=== PATIENT | female | born 1945 | race Caucasian/White ===

== ENCOUNTER 2016-07-12 16:48 | Inpatient (IN) | payer MEDICARE, OTHER ==
[~2016-07-12] VITALS: Ht 162.6 cm; Wt 74.0 kg
[2016-07-12] VITALS (7 sets, daily range): BP systolic 101–134; BP diastolic 43–82; PULSE 77–137; RESP 12–16; O2SAT 98–100
--- NOTE | 2016-07-12 17:29 | ED.REPORT ---
HPI-NVD Date of Service Jul 12, 2016 ED Provider: Merline Calderon MD The patient is a 71 year old female with history of hypertension and borderline high cholesterol who presents to the emergency department by EMS for vomiting that began at about 1600 today. She states her emesis looked like "coffee- grounds" and was bloody. She has not had another episode since. She had an endoscopy with biopsy at [facility] yesterday. She felt fine after the procedure and went home. This morning she woke up in a cold sweat and noticed some nausea, generalized weakness, and tarry stools. She went to [facility] and was told she might have the flu and was sent home. Around 1600 today she felt much worse and began vomiting. She does not take any blood thinners. She has not had similar symptoms in the past. Nursing Notes Stated Complaint: GI BLEED Chief Complaint: Female Abdominal Pain Nursing Notes Reviewed: Yes Allergies: Coded Allergies: codeine (Verified Allergy, Unknown, 07/12/16) nifedipine (Verified Allergy, Unknown, 07/12/16) Uncoded Allergies: INFERON (Allergy, Unknown, 07/12/16) Scheduled Aspirin Chew (Aspirin Chew) 81 Mg Chew 81 MG PO HS Estradiol (Estring) 1 Each Vag.ring 1 EACH VG change every 3 month Hydrochlorothiazide (Hydrochlorothiazide) 25 Mg Tablet 25 MG PO MORNING Lisinopril (Lisinopril) 20 Mg Tablet 20 MG PO MORNING Omeprazole Magnesium (Prilosec Otc) 20 Mg Tablet.dr 20 MG PO HS Triamcinolone Acetonide (Nasacort) 10.8 Ml [place] 10.8 ML NS HS General Time Seen by MD: 17:27 Chief Complaint Vomiting Hx Obtained From: Patient, EMS Arrived By: Ambulance Onset Occurred: 5 - 8 hours ago Symptom Duration: Since onset Vomiting: Vomiting blood, Vomiting coffee grounds Recent Healthcare: Recent doctor visit, Previous surgery (endoscopy) Similar Sx Previous: No Past Medical History Past Medical History Hypertension High cholesterol Past Surgical History Endoscopy with biopsy Family History Noncontributory Smoking History Unknown if Ever Smoker Social History Other Social History: Good social support, , Local resident Ambulatory Status Independent Review of Systems Constitutional: Reports: Chills GI: Reports: Bloody/tarry stool, Hematemesis, Nausea, Vomiting Skin: Reports Diaphoresis Complete sys rev & neg: except as marked. Physical Exam Initial Vital Signs Vital Signs (First) Date Time Temp Pulse Resp B/P Pulse Ox O2 Delivery O2 Flow Rate FiO2 07/12/16 17:04 37.1 82 15 134/62 99 Room Air Initial VS: Reviewed ENT: Mucous membranes moist, Conjunctiva normal, No scleral icterus Neck: Supple, Non-tender, Full range of motion Respiratory: Breath sounds normal, Clear to auscultation, No respiratory distress Cardiovascular: Regular rate & rhythm, Heart sounds normal, Intact distal pulses Lymphatic: No lymphadenopathy Extremities: Vascular intact, Neuro intact, No swelling, No tenderness Skin: Warm, Dry, No cyanosis Neurologic: Alert, Oriented, Nonfocal Psychiatric: Mood/affect normal, Behavior normal, Normal thought content General/Constitutional: Awake, Alert, Well appearing Abdomen: Atraumatic, Soft, Non-tender, McBurney's non-tender, No guarding, No rebound, BS normoactive, No distention, No hernia, No palpable mass Head / Eyes: Normocephalic, PERRL, EOMI, Conjunctiva NL Conjunctiva / Sclera: Negative: Pallor Rectal for Blood: Positive: Blood - occult heme +, Melena present Interpretation & Diagnostics Lab Results Interpretation Result Diagram: 07/12/16 2152 07/12/16 1731 Test 07/12/16 17:17 07/12/16 17:31 Hold Purple Top Tube Received (Received) Hold Blue Top Tube Received (Received) Hold Red Top Tube Received (Received) Hold [place] Top Tube Received (Received) White Blood Count 7.7th/mm3 (3.8-10.1) Red Blood Count 3.60mil/mm3 (3.90-5.20) Mean Corpuscular Volume 90.8fL (81-100) Mean Corpuscular Hemoglobin 30.3pg (27.0-35.0) Mean Corpuscular Hemoglobin Concent 33.3% (32.0-37.0) Red Cell Distribution Width 12.7% (12.3-15.4) Platelet Count 228bil/L (150-400) Neutrophils (%) (Auto) 61.7% (40-74) Lymphocytes (%) (Auto) 31.8% (14-46) Monocytes (%) (Auto) 5.7% (4-12) Eosinophils (%) (Auto) 0.4% (0-5) Basophils (%) (Auto) 0.3% (0-3) Prothrombin Time 10.9sec (8.1-12.5) Prothromb Time International Ratio 1.02ratio Sodium Level 141mEq/L (134-144) Potassium Level 4.1mEq/L (3.5-5.2) Chloride Level 105mEq/L (97-108) Carbon Dioxide Level 24mmol/L (18-29) Blood Urea Nitrogen 45mg/dL (8-27) Creatinine 0.54mg/dL (0.57-1.00) Estimat Glomerular Filtration Rate 160mL/min (>59) Glucose Level 152mg/dL (60-99) Calcium Level 8.7mg/dL (8.5-10.1) Total Bilirubin 0.4mg/dL (0.0-1.2) Aspartate Amino Transf (AST/SGOT) 15U/L (0-50) Alanine Aminotransferase (ALT/SGPT) 23U/L (0-32) Alkaline Phosphatase 54U/L (25-165) Total Protein 5.8g/dL (6.4-8.4) Albumin 3.8g/dL (3.4-5.0) Re-Eval/Medical Decision Med Decision/Clinical Course 71-year-old female with extensive past medical history with EGD yesterday here with hematemesis and black stool today along with fatigue. Differential diagnosis includes it is not limited to upper versus lower GI bleed versus bleeding biopsy sites versus anemia. Labs are remarkable for hemoglobin of 11. I do not have baseline labs on the patient. She did become rapidly tachycardic at 1:30 during orthostatic vital signs. Given that she had heme positive black stool, and was orthostatic, I have admitted her to the hospitalist. I also discussed the case with GI on-call doctor Shamir who will see the patient in the morning unless she becomes unstable. Patient is aware and amenable to plan at this time. Source of Hx: Old records, EMS, Family Re-Evaluation/Progress : Time of Eval: 18:27 Re-Evaluation/Progress Note: Discussed plan for admission. All questions were addressed. Consultation #1: Referral / Consult Name: Cirilo Childers MD Call Returned at: 18:21 Note: Spoke with the on-call physician assistant psychiatry. Recommended PPI drip and transfuse as needed by hospitalist. He agrees to consult. Consultation #2: Referral / Consult Name: Margarito Botello Consulted With: Hospitalist Requested Call at: 18:22 Call Returned at: 18:37 Cardiologist: Will see patient, Agrees with eval, Agrees with plan, Accepts admit Counseled Regarding: Diagnosis, Lab results, Need for admission Discharge & Departure Impression: Primary Impression: Upper GI bleed Disposition: ADMITTED TO HOSPITAL Discharge Condition All VS Reviewed: Yes Condition: Stable Referrals: NOPCP (PCP) Carmelo Attestation Portions of this note were transcribed by Batool Obando. I, Dr. Calderon personally performed the history, physical exam and medical decision-making; I reviewed and confirmed the accuracy of the information in the transcribed note. Signed by : Carmelo Chang, 07/12/2016 and 1840. Merline Calderon MD Jul 12, 2016 17:29 Batool Obando Jul 12, 2016 17:48
[2016-07-12 17:35] LABS: BASOPHILS % (AUTO) 0.3 % (0-3); EOSINOPHILS % (AUTO) 0.4 % (0-5); MONOCYTES % (AUTO) 5.7 % (4-12); Mean Corpuscular Hemoglobin 30.3 pg (27.0-35.0); Mean Corpuscular Volume 90.8 fL (81-100); NEUTROPHILS % (AUTO) 61.7 % (40-74); Platelet Count 228 bil/L (150-400)
[2016-07-12 17:39] LABS: INR 1.02 ratio
[2016-07-12] MEDS ORDERED: Ondansetron 2 mg/mL 2 mL Inj IVPUSH ONE (17:55)
[2016-07-12] MEDS ORDERED: Pantoprazole 4 mg/mL 10 mL Inj IVPUSH ONE ×2 (18:00→20:25)
[2016-07-12] MEDS ORDERED: Ondansetron 2 mg/mL 2 mL Inj IVPUSH PRN ×2 (18:40→19:55)
[2016-07-12] MEDS ORDERED: Alum-Mag Hydrox-Simeth 30 mL Suspension PO PRN (19:55)
[2016-07-12] MEDS ORDERED: Pantoprazole Inj 40 MG in 0.9% Sodium Chloride 100 ML IV ONE (19:55)
[2016-07-12] MEDS ORDERED: Polyethylene Glycol (PEG) 17 Gm Powder PO PRN (19:55)
[2016-07-12] MEDS ORDERED: HYDR25TA4 PO (20:05)
[2016-07-12] MEDS ORDERED: LISI-567 PO (20:05)
[2016-07-12] MEDS ORDERED: ESTR1VAG VG (20:05)
[2016-07-12] MEDS ORDERED: ASPI81TA3 PO (20:05)
[2016-07-12] MEDS ORDERED: TRIA10.8 NS (20:05)
[2016-07-12] MEDS ORDERED: OMEP20TA24 PO (20:05)
--- NOTE | 2016-07-12 20:07 | NUR ---
Admit Arrive from ER A/O accompanied by . c/o feeling weak and woozy when up. Denies pain, nausea, dyspnea. Tele placed. VSS except low grade temperature.
[2016-07-12] MEDS ORDERED: 0.9% Sodium Chloride 1,000 ML IV ONE (20:15)
[2016-07-12] MEDS: 0.9% Sodium Chloride 1,000 ML IV SCH (20:28)
[2016-07-12] MEDS: Pantoprazole Inj 80 MG in 0.9% Sodium Chloride 80 ML IV SCH (21:16)
--- NOTE | 2016-07-12 21:31 | PCM.HPMED ---
Subjective Date of Service Jul 12, 2016 Primary Provider: Admitting Physician: Jeanne Jeter DO Primary Care Physician: Other,Physician Attending Physician: Jeanne Jeter DO Admit Status: From the Emergency Department Chief Complaint: Hematemesis History of Present Illness: [employer] annual female with history of hypertension and hyperlipidemia, with ongoing evaluation for 6 months course voice following a viral infection presents to the ED due to ongoing melena and new substantial hematemesis. Patient underwent EGD and [facility] on 07/11/2016 with biopsy of the gastroesophageal junction as this was noted to be irregular. Following the biopsy the patient was sent to GI motility and had a pH impedance monitoring probe inserted. This morning the patient awoke with a cold sweat, nausea, and melena with associated dizziness, lightheadedness, and general malaise. Patient return to [facility] this morning to have the probe removed at which time it was noted that the probe had streaks of blood on it, and was told that this is not unusual. Patient returned home and around 1600 today had a large emesis described as coffee-ground with copious amounts of blood. Patient is currently not on blood thinners, NSAIDs, or has ever suffered from a GI bleed before. However her father did have an IN second to severe GI bleed. Patient denies fever, chills, changes in vision, or sensation loss. Review of Systems: Complete review of systems performed; pertinent positives and negatives per history of present illness all other systems reviewed and are negative Allergies Coded Allergies: codeine (Verified Allergy, Unknown, 07/12/16) nifedipine (Verified Allergy, Unknown, 07/12/16) Uncoded Allergies: INFERON (Allergy, Unknown, 07/12/16) Home Medications ASA 81 mg daily Lisinopril 20mg daily HCTZ 25mg daily Estring PMH Hypertension High cholesterol Surgical History Endoscopy with biopsy Family History Father had CABG, HTN Mother has HTN Social History Hx Alcohol Use: Yes Alcoholic Drinks Per Day: COUPLE GLASSES WINE PER WEEK Hx Substance Use: No Hx Tobacco Use: No Smoking Status: Never Smoker Living Arrangement: with Family Exam Vital Signs Vital Sign - Last Date Time Temp Pulse Resp B/P Pulse Ox O2 Delivery O2 Flow Rate FiO2 07/12/16 19:19 37.4 77 16 116/82 100 Nasal Cannula 2.00 Exam GEN: No acute distress, conversive, well-developed HENT: Mucous membranes dry, no blood in pharynx, neck supple, some blood noticed in the nares bilaterally; no nodules on thyroid Eyes: PERRLA, EOMI Lymph: No lymphadenopathy Cardiac: regular rhythm, tachycardic my: No murmurs rubs or gallops Respiratory: CTA bilaterally, no wheezes, crackles, rhonchi Abdominal: Positive bowel sounds, nontender, nondistended, no hepatomegaly Extremity: No edema in the lower extremities, 5 out of 5 strength throughout, sensation intact throughout Neuro: Cranial nerves 2 through 12 intact; sensation intact throughout, 1 psych : Patient appropriate mood and affect Skin: No excessive bruising or rashes Musculoskeletal: No tenderness on palpation the chest or extremities Lab and Diagnostics Result Diagram: 07/12/16173007/12/161730 Assessment & Plan 71-year-old female with recent upper endoscopy with biopsy with new hematemesis. #1 upper GI bleed with acute anemia; present admission; ongoing -Patient was recently seen [facility] and underwent EGD with biopsy of antrum; complaints of hemoptysis and now hematemesis following procedure -Presentation the patient's H&H is currently stable with hemoglobin 10.9, hematocrit 32.7; BUN is also elevated likely from digestion of blood; PT/INR normal -In the ED the patient was given 40 mg IV Protonix -On-call GI was consulted from the ED and will see patient in the a.m. -Patient given an additional 40 mg IV Protonix with initiation of Protonix gtt. -We will check H&H every 4 through the night and into tomorrow -We will order cross match and hold in case patient needs transfusion tonight -Patient also bolused 2L normal saline and will continue on 80 mL/hour -If patient abdominal status changes we will send for CT #2 Hyperglycemia; present on admission; ongoing -No known history of diabetes; patient presents with glucose 152 -We will check an A1c -Start patient on low-dose insulin protocol #3 Chronic Hypertension; present on admission; stable -Patient is on the Lisinopril and hydrochlorothiazide at home -Patient presents with blood pressure 116/82 -We will hold home medications until proven hemodynamically stable #4 Hypercholesterolemia; present on admission; stable -Patient was previously on statin but had unwanted side effects of decreased mentation medication was stopped -We will not start medication Disposition: patient is being admitted to inpatient PCC with acute GI bleed with expected Navas greater than 2 minutes due to severity of presenting symptoms, duration treatment, and risks of adverse events Pain Evaluation: Adequate Pain Control GI Prophylaxis: Proton Pump Inhibitor VTE Prophylaxis Indicated: Contraindicated VTE Mechanical Devices: Intermittant Pneumatic CD Resuscitation Status: CPR: Attempt Resuscitation Attending Statement The patient was seen and examined together with house staff on 07/12/2016 and I agree with the history, exam and plan as outlined in the note above. Leonardo Oakley DO Jul 12, 2016 20:11 Jeanne Jeter DO Jul 13, 2016 06:30
[2016-07-12] MEDS ORDERED: Glucose 40% Oral Gel 15 Gm Tube PO PRN (21:35)
[2016-07-12] MEDS: Insulin LISPRO 300 Unit/3 mL Inj SUBQ SCH (21:53)
--- NOTE | 2016-07-12 22:22 | NUR ---
Kumar page Dr Oakley of 2152 labs -H&H of 7.7/23.6. No current new orders received.
[2016-07-13] VITALS (12 sets, daily range): BP systolic 102–142; BP diastolic 70–77; PULSE 77–97; RESP 12–20; O2SAT 97–100
--- NOTE | 2016-07-13 00:44 | NUR ---
Dr. Jeter made aware of 7.7 and 23.6 HH. Two units PRBCs on standby if HGB < 7.
[2016-07-13 00:52] LABS: APPEARANCE,URINE CLEAR (CLEAR,HAZY); COLOR,URINE STRAW (YELLOW); OCCULT BLOOD,URINE NEGATIVE (NEGATIVE); PH,URINE 5.5 (5.0-8.0); UROBILINOGEN,URINE NORMAL (NORMAL)
[2016-07-13] MEDS ORDERED: EPINEPHrine 0.1 mg/mL 10 mL Syringe ONE (01:49)
[2016-07-13] MEDS ORDERED: 0.9% Sodium Chloride 1,000 ML IV ONE (03:00)
[2016-07-13 03:50] LABS: BASOPHILS % (AUTO) 0.6 % (0-3); EOSINOPHILS % (AUTO) 0.9 % (0-5); MONOCYTES % (AUTO) 5.9 % (4-12); Mean Corpuscular Hemoglobin 29.8 pg (27.0-35.0); Mean Corpuscular Volume 91.5 fL (81-100); NEUTROPHILS % (AUTO) 53.9 % (40-74); Platelet Count 156 bil/L (150-400)
--- NOTE | 2016-07-13 06:09 | NUR ---
P: low H&H I: transfusing one unit PRBCs, H&H every 4 hrs E: A/O. Denies pain, dyspnea. c/o weakness w/ SBA to BSC and mild nausea after returning to bed. Zofran effective. Next time to BSC still feeling weak, no nausea but "squeezy" abdominal sensation w/ some bloating. No stool. Flatus and occasional belching. Protonix drip infusing. VSS. Tele SR at rest, ST w/ activity.
[2016-07-13] MEDS: 0.9% Sodium Chloride 250 ML IV SCH (06:41)
[2016-07-13] MEDS: Insulin LISPRO 300 Unit/3 mL Inj SUBQ SCH ×4 (08:00→21:49)
[2016-07-13] MEDS: Pantoprazole Inj 80 MG in 0.9% Sodium Chloride 80 ML IV SCH ×2 (08:17→21:46)
--- NOTE | 2016-07-13 11:39 | PCM.PNMED ---
Subjective Date of Service Jul 13, 2016 Subjective She feels weak, no chest pain. No dyspnea. No bowel movement today. She had both hematochezia and hematemesis yesterday. Coffee ground, and melena. Her hematocrit is 22. She received 1 unit packed cells. She is going to have endoscopy today. Exam Vital Signs Vital Sign - Last Date Time Temp Pulse Resp B/P Pulse Ox O2 Delivery O2 Flow Rate FiO2 07/13/16 08:00 36.8 87 16 112/70 07/13/16 04:46 Room Air 07/13/16 03:14 97 07/12/16 19:19 2.00 Intake and Output 07/12/16 07/12/16 07/13/16 Cumulative From/Thru 15:00 23:00 07:00 07/12/16 17:04 - 07/13/16 06:07 Intake Total 3244 ml 3244 ml Output Total 700 ml 700 ml Balance 2544 ml 2544 ml Intake Oral 600 ml 600 ml IV Total 2644 ml 2644 ml Output Urine Total 700 ml 700 ml # Bowel Movements 0 0 0 Exam The right 3. Fluent speech. Anicteric sclerae. Neck supple. Lungs are clear, normal effort. Heart is regular without murmur Abdomen is soft nondistended. Extremities are free of edema good pedal pulses IVs and Medications Medications Reviewed: Medications were reviewed in detail Lab and Diagnostics Result Diagram: 07/13/16 0830 07/13/16 0320 Assessment & Plan 71-year-old female with recent upper endoscopy with biopsy with new hematemesis. 1. upper GI bleed with acute anemia; present admission; ongoing This is most likely going to be an ulcer with bleed. The patient on Protonix drip and get a go endoscopy later this afternoon. 2. Acute blood loss anemia. The patient will have serial hematocrits and transfuse for hematocrit less than 21. She is very received 1 unit of blood. 3. Hyperglycemia; present on admission; ongoing -No known history of diabetes; patient presents with glucose 152 -We will check an A1c -Start patient on low-dose insulin protocol 4. Chronic Hypertension; present on admission; stable -Patient is on the Lisinopril and hydrochlorothiazide at home -Patient presents with blood pressure 116/82 -We will hold home medications until proven hemodynamically stable 5. Hypercholesterolemia; present on admission; stable -Patient was previously on statin but had unwanted side effects of decreased mentation medication was stopped -We will not start medication Disposition: patient is being admitted to inpatient PCC with acute GI bleed with expected Navas greater than 2 minutes due to severity of presenting symptoms, duration treatment, and risks of adverse events Pain Evaluation: Adequate Pain Control GI Prophylaxis: Proton Pump Inhibitor VTE Mechanical Devices: Intermittant Pneumatic CD Resuscitation Status: CPR: Attempt Resuscitation Time spent 25 minutes Himanshu Moctezuma MD Jul 13, 2016 11:39
[2016-07-13] MEDS: 0.9% Sodium Chloride 1,000 ML IV SCH ×2 (12:52→20:53)
--- NOTE | 2016-07-13 14:53 | NUR ---
Social Work: Attempted Assessment D: Per EMR review, pt is a 71 year old female admitted for Upper GI Bleed. Pt is Medicare with [employer]. PCP Is listed as other. NOK Is Julio Cesar Goodrich, spouse, . Readmit score is not entered at this time. SCREW MACHINE OPERATOR attempted to complete assessment with pt at bedside. Pt currently off the floor for upper endoscopy. Per EMR review, pt has been I during admission and lives at home with her spouse. Pt received 1 unit of blood this morning. Advanced directives were offered to pt by RN during admission. A: [place] P: SCREW MACHINE OPERATOR to continue to follow up with pt to complete assessment; anticipate pt to discharge home with no social work needs. ESDRAS Blakely
[2016-07-13] MEDS ORDERED: Ondansetron 2 mg/mL 2 mL Inj IVPUSH PRN (15:00)
[2016-07-13] MEDS ORDERED: MetoCLOpramide 5 mg/mL 2 mL Inj IVPUSH PRN (15:00)
[2016-07-13] MEDS ORDERED: Propofol 10,000 mCg/mL 20 mL Inj ONE (15:00)
[2016-07-13] MEDS ORDERED: Lactated Ringer's 1,000 ML IV ONE (15:00)
--- NOTE | 2016-07-13 15:00 | PCM.HPANE ---
Patient Data Surgeon Admitting Provider:Jeanne Jeter DO Attending Provider:Jeanne Jeter DO Primary Care Physician:Other,Physician Other Provider: Reason for Visit Upper Gi Bleed Ht/WT & BMI Height (Feet): 5 Height (Inches): 4.00 Weight (Kilograms): 73.900 Body Mass Index 27.00 Allergies Coded Allergies: codeine (Verified Allergy, Unknown, 07/12/16) nifedipine (Verified Allergy, Unknown, 07/12/16) Uncoded Allergies: INFERON (Allergy, Unknown, 07/12/16) Past Anesthesia History Anesthesia History: Denies:: Anesthesia Reactions (NAUSEA), Fam Anesthesia Reaction, Fam Malignant Hypertherm, Malignant Hyperthermia Diabetes History Hx Diabetes?: No Current Bedside Blood Glucose: 95 MRSA MRSA: No Medications Blood Thinner: Aspirin Last Dose Blood Thinner: Jul 11, 2016 Reported Medications Hydrochlorothiazide 25 Mg Kyocju12 Mg PO MORNING 30 Days Ref 0 07/12/16 Lisinopril 20 Mg Asarbo71 Mg PO MORNING 30 Days Ref 0 07/12/16 Estradiol (Estring)1 Each Vag.ring1 Each VG change every 3 month 07/12/16 Triamcinolone Acetonide (Nasacort)10.8 Ml Spray10.8 Ml NS HS 07/12/16 Aspirin Chew 81 Mg Chew81 Mg PO HS Ref 0 07/12/16 Omeprazole Magnesium (Prilosec Otc)20 Mg Tablet.dr20 Mg PO HS #1 PKG Ref 0 07/12/16 History History of ENT Problems?: Yes HEENT History: Positive for:: Sinus Problem (CHRONIC POST NASAL DRIP) Denies:: Cataracts Dysphagia Glaucoma Cardiovascular History: Positive for:: Edema (ANKLES) Hypertension Denies:: Cardiac Surgery Chest Pain Congestive Heart Failure Heart Murmur Irregular Heartbeat Pacemaker Thrombophlebitis Other Cardiac History: VARICOSE VEINS Hx of Respiratory Problem?: No Respiratory History: Positive for:: Hemoptysis (TODAY, 07/11, BLOODY EMESIS) Denies:: Asthma COPD Chest Surgery Dyspnea Emphysema Pneumonia Tuberculosis Hx Neurologic Problems?: Yes Neurological History: Positive for:: Dizziness (TODAY FEELING WEAK AND WOOZY ) Headaches (MIGRAINES IN PAST) Denies:: Alzheimer's Disease CVA Dementia Parkinson's Disease Seizures Hx of GI Problems?: Yes Gastrointestinal History: Positive for:: Gastroesphageal Reflux Gastrointestinal Bleeding (/18 AM, TARRY STOOL, BLOODY EMESIS) Hiatal Hernia (SMALL ) Denies:: Diverticulitis Heartburn Hepatitis Rectal Bleeding Hx of Problems?: Yes Genitourinary History: Positive for:: Urinary Tract Infection (YRS AGO) Denies:: HX of Hemodialysis Kidney Stones HX of Peritoneal Dialysis: No Female Hx: Denies:: Currently Endometriosis Pelvic Inflammatory Problems with Breasts? Hx Musculoskeletal Problems?: Yes Musculoskeletal History: Denies:: Back Injury Joint Replacement Musculoskeletal Trauma Hx of Psycho/Social Problems?: Yes Psycho Social History: Positive for:: Hx Depression (PERIMENOPAUSE, OFF PROZAC NOW) Denies:: Anxiety Bipolar Disorder Suicide Attempt Hx Surgeries?: Yes (OUT PT BRITTANY SHOULDER SURG, D&C, TONSILECTOMY) Hx Any Other Health Problems?: Yes Other History: Positive for:: Cancer (NOSE SQUAMOUS CELL REMOVED) Hospitalization (GIVING ) Denies:: Thyroid Disease History Blood Transfusions: Positive for:: Accept Blood Products? Blood Transfusions Denies:: Blood Transfuse Reaction Hx Diabetes: NoBedside Blood Glucose: 95 Hx Alcohol Use: YesAlcoholic Drinks Per Day: COUPLE GLASSES WINE PER WEEK Hx Substance Use: No Smoking Status: Never Smoker Have You Smoked inLast 12 mo: No Stop/Bang Treated for Sleep Apnea?: No Do You Have a CPAP Machine?: No S-Snoring: Do You Snore Loudly: Yes T-Tired: feel tired, fatigued: No O-Obsered: Observed not breath: No P-Blood Pressure: treated: Yes B- Body Mass Index > 35 kg/m2: Yes A- Age over 50: Yes N- Neck Large Circumference: Yes G- Gender Male: No ARMANDO Total Score: 5 ARMANDO Risk Assessment: Low Risk, <3 Yes Risk Assessment Category Category 1A: Patient has history of documented sleep apnea, and HAS NOT received any narcotic, sedative or anesthesia administration during this stay. Category 1B: Patient has history of documented sleep apnea, and HAS received any narcotic , sedative or anesthesia administration during this stay Category 2: Patient has SUSPECTED Obstructive Sleep Apnea, and HAS received any narcotic , sedative or anesthesia administration during this stay. Category 3: Patient has SUSPECTED Obstructive Sleep Apnea and HAS NOT received narcotic, sedative or anesthesia administration during this stay. Category 4: Outpatient in Procedural Areas with known sleep apnea or who screen positive for High Risk via the STOP/BANG questionnaire. Exam Exam Vital Signs Vital Signs Date Time Temp Pulse Resp B/P Pulse Ox O2 Delivery O2 Flow Rate FiO2 07/13/16 14:20 36.4 86 16 123/73 98 Room Air 07/13/16 12:18 37.3 82 20 102/70 98 Room Air 07/13/16 08:00 36.8 87 16 112/70 General Appearance: Oriented X3 HEENT/AIRWAY: MP 2 Lungs: Normal Air Movement Heart: Regular Rate/Rhythm Meds/Labs/Diagnostics Admission Meds Current Medications Ondansetron HCl (Zofran Inj) 4 mg ONCE ONCE IVPUSH Last administered on 18:03; Start 07/12/16 at 17:55; Stop 07/12/16 at 17:56; Status DC Pantoprazole 40 mg 40 mg ONCE ONCE IVPUSH Last administered on 07/12/16 18:03 ; Start 07/12/16 at 18:00; Stop 07/12/16 at 18:01; Status DC Sodium Chloride 1,000 ml @ 80 mls/hr [id number] IV Last administered on 12:52; Start 07/12/16 at 19:53 Pantoprazole 80 mg/Sodium Chloride 100 ml @ 10 mls/hr Q10H IV Last administered on 07/13/16 08:17; Start 07/12/16 at 19:55 Sodium Chloride (Normal Saline) 1,000 ml @ 0 mls/hr Q0M ONCE IV Last administered on 07/12/16 20:29; Start 07/12/16 at 20:15; Stop 07/12/16 at 20:22 ; Status DC Pantoprazole 40 mg 40 mg ONCE ONCE IVPUSH Last administered on 07/12/16 21:16 ; Start 07/12/16 at 20:25; Stop 07/12/16 at 20:26; Status DC Sodium Chloride 1,000 ml @ 0 mls/hr Q0M ONCE IV Last administered on 03:02; Start 07/13/16 at 03:00; Stop 07/13/16 at 03:04; Status DC Sodium Chloride (Normal Saline) 250 ml @ 10 mls/hr Q24H IV Last administered on 1/20/17at 06:41; Start 07/13/16 at 04:20 Bedside Blood Glucose: 95 Labs Test 07/12/16 17:17 07/12/16 17:31 07/13/16 00:09 07/13/16 00:15 Hold Purple Top Tube Received (Received) Hold Blue Top Tube Received (Received) Hold Red Top Tube Received (Received) Hold Rossiter Top Tube Received (Received) Prothrombin Time 10.9sec (8.1-12.5) Prothromb Time International Ratio 1.02ratio Urine Color Straw (YELLOW) Urine Appearance Clear (CLEAR,HAZY) Urine pH 5.5 (5.0-8.0) Urine Specific Molt 1.015 (1.003-1.035) Urine Protein Negativemg/dL (NEG,TRACE) Urine Glucose (UA) Negativemg/dL (NEGATIVE) Urine Ketones Negativemg/dL (NEGATIVE) Urine Occult Blood Negative (NEGATIVE) Urine Nitrite Negative (NEGATIVE) Urine Bilirubin Negative (NEGATIVE) Urine Urobilinogen Normalmg/dL (NORMAL) Urine Leukocyte Esterase Negative (NEGATIVE) Urine RBC 0-2/hpf (0-2) Urine WBC 0-5/hpf (0-5) Urine Epithelial Cells Moderate/hpf (NONE-MOD) Urine Crystals None seen (NONE SEEN) Urine Bacteria Moderate/hpf (NONE-FEW) Urine Hyaline Casts None/lpf (NONE) Urine Granular Casts None seen (NONE SEEN) Urine Waxy Casts None seen (NONE SEEN) Urine Red Blood Cell Casts None seen (NONE SEEN) Urine White Blood Cell Casts None seen (NONE SEEN) Urine Mucus None seen (None Seen) Urine Trichomonas None seen (NONE SEEN) Urine Yeast None (NONE SEEN) Urine Culture Reflexed Indicated Test 07/13/16 03:20 07/13/16 12:40 White Blood Count 5.5th/mm3 (3.8-10.1) Red Blood Count 2.35mil/mm3 (3.90-5.20) Mean Corpuscular Volume 91.5fL (81-100) Mean Corpuscular Hemoglobin 29.8pg (27.0-35.0) Mean Corpuscular Hemoglobin Concent 32.6% (32.0-37.0) Red Cell Distribution Width 12.5% (12.3-15.4) Platelet Count 156bil/L (150-400) Neutrophils (%) (Auto) 53.9% (40-74) Lymphocytes (%) (Auto) 38.5% (14-46) Monocytes (%) (Auto) 5.9% (4-12) Eosinophils (%) (Auto) 0.9% (0-5) Basophils (%) (Auto) 0.6% (0-3) Sodium Level 144mEq/L (134-144) Potassium Level 3.8mEq/L (3.5-5.2) Chloride Level 112mEq/L (97-108) Carbon Dioxide Level 23mmol/L (18-29) Blood Urea Nitrogen 36mg/dL (8-27) Creatinine 0.54mg/dL (0.57-1.00) Estimat Glomerular Filtration Rate 160mL/min (>59) Glucose Level 124mg/dL (60-99) Calcium Level 7.3mg/dL (8.5-10.1) Total Bilirubin 0.3mg/dL (0.0-1.2) Aspartate Amino Transf (AST/SGOT) 12U/L (0-50) Alanine Aminotransferase (ALT/SGPT) 15U/L (0-32) Alkaline Phosphatase 37U/L (25-165) Total Protein 4.1g/dL (6.4-8.4) Albumin 2.8g/dL (3.4-5.0) Hemoglobin 7.2g/dL (12.0-15.6) Hematocrit 21.9% (35.0-46.0) Plan Impression Patient chart reviewed, patient interviewed and anesthestic plan with risks, benefits, and alternatives discussed, and informed consent obtained. ASA Physical Status: ASA2 Mod Systemic Disease Anesthetic Plan: MAC Bene/Risks/Altern/Consents: Yes HP Complete Prior to Induction: Yes Otf Hutchinson MD Jul 13, 2016 15:00
[2016-07-13] MEDS: Lactated Ringer's 1,000 ML IV SCH ×2 (15:38→16:56)
--- NOTE | 2016-07-13 15:50 | PCM.ANEP1 ---
Post Anesthesia Phase 1 PACU Phase 1 Assessment Vital Signs Vital Signs Date Time Temp Pulse Resp B/P Pulse Ox O2 Delivery O2 Flow Rate FiO2 07/13/16 15:40 97 16 142/77 97 Room Air 07/13/16 14:20 36.4 86 16 123/73 98 Room Air 07/13/16 12:18 37.3 82 20 102/70 98 Room Air 07/13/16 08:00 36.8 87 16 112/70 07/13/16 08:00 83 Anesthetic Administered: MAC Level of Alertness: Awake, talking Pain: No Nausea or Vomiting: No Oxygen Delivery: Room Air Lungs: Normal Air Movement Otf Hutchinson MD Jul 13, 2016 15:50
--- NOTE | 2016-07-13 15:51 | PCM.ANEP2 ---
Post Anesthesia Evaluation ASA/CMS Post Anesthesia VS in Patient's Normal Range?: Yes Resp Stable; Airway Patent?: Yes CV Function & Hydration Stable: Yes Mental Status Recovered?: Yes Pain control Satisfactory?: Yes N/V Control Satisfactory?: Yes Otf Hutchinson MD Jul 13, 2016 15:51
--- NOTE | 2016-07-13 16:46 | PCM.CHPMED ---
Subjective Date of Service: Jul 13, 2016 Provider requesting consult: Himanshu Moctezuma MD Primary Physician: Admitting Physician: Jeanne Jeter DO Primary Care Physician: Other,Physician Attending Physician: Jeanne Jeter DO Chief Complaint: Chief Complaint: Melena, hematemesis History of Present Illness: Patient is a 71 year old female with history of hypertension and hyperlipidemia who presents to the ED due to ongoing melena and new substantial hematemesis. Patient underwent EGD at [facility] on 07/11/2016 with biopsy of the gastroesophageal junction as this was noted to be irregular. Following the biopsy the patient had a pH impedance monitoring probe inserted. The next morning the patient awoke with a cold sweat, nausea, and melena with associated dizziness, lightheadedness, and general malaise. She returned to [facility] to have the probe removed at which time it was noted that the probe had streaks of blood on it, and was told that this is not unusual. She returned home and that afternoon she had a large emesis described as coffee-ground with copious amounts of blood. At time of consult, she reports mild nausea and weakness, but denies vomiting/hematemesis, diarrhea or melena, fevers, chills, chest pain or abdominal pain. Patient is currently not on blood thinners, NSAIDs, or Tylenol. She has never suffered from a GI bleed before. However her father did have an [place] second to severe GI bleed. She reports 2 grandmothers diagnosed with colon cancer, one in her 70s, one at 89. Her last colonoscopy was last year with no polyps, and was told to follow up in 5 years because of her risk factors and previous history of polyps. No family history of Crohn's, UC, or Celiac disease. On admission, Hb was 10.9, which dropped to 7.9 then to 7. She received 1 U PRBCs, and is currently at Hb 7.2. Vitals stable. Review of Systems: Comprehensive review of systems conducted and was negative except for the pertinent positives listed above. PMH Past Medical History Hypertension High cholesterol Bedside Blood Glucose: 95 Surgical History Endoscopy with biopsy Allergies: Coded Allergies: codeine (Verified Allergy, Unknown, 07/12/16) nifedipine (Verified Allergy, Unknown, 07/12/16) Uncoded Allergies: INFERON (Allergy, Unknown, 07/12/16) Family History Family History Father had CABG, HTN Mother has HTN 2 grandmothers with colon cancer Social History Hx Alcohol Use: YesAlcoholic Drinks Per Day: COUPLE GLASSES WINE PER WEEK Hx Substance Use: NoHx Tobacco Use: No Smoking Status: Never Smoker Living Arrangement: with Family Exam Vital Signs Vital Sign - Last Date Time Temp Pulse Resp B/P Pulse Ox O2 Delivery O2 Flow Rate FiO2 07/13/16 16:25 36.8 78 18 117/76 98 Room Air 07/12/16 19:19 2.00 Intake and Output 07/12/16 07/12/16 07/13/16 Cumulative From/Thru 15:00 23:00 07:00 07/12/16 17:04 - 07/13/16 06:07 Intake Total 3244 ml 3244 ml Output Total 700 ml 700 ml Balance 2544 ml 2544 ml Intake Oral 600 ml 600 ml IV Total 2644 ml 2644 ml Output Urine Total 700 ml 700 ml # Bowel Movements 0 0 0 Additional Information: General: Alert, Oriented X3, Cooperative, No Acute Distress Head: Normocephalic, atraumatic. External ears normal. Eyes: PERRLA, EOMI. Anicteric sclerae. Mild conjunctival pallor. Mouth: Mouth Normal, Mucous Membranes Moist/[place] Neck: Neck supple with full range of motion. Chest & Lungs: Clear to auscultation bilaterally with no crackles, wheezes, or rhonchi. Cardiovascular: Regular Rate/Rhythm, Normal S1, Normal S2, No Murmurs/Rubs/ Gallops Abdomen: Non-tender, Non-distended, No masses, Normoactive bowel tones, Soft Musculoskeletal: Normal Range of Motion Extremities: No cyanosis/clubbing/edema bilaterally Neurological: Grossly Neurologically Intact, Normal Speech Lab and Diagnostics Result Diagram: 07/13/16 1240 07/13/16 0320 Assessment & Plan Assessment Patient is a 71 year old female with history of hypertension and hyperlipidemia who presents to the ED due to ongoing melena and new substantial hematemesis following upper endoscopy with biopsy and placement of intranasal pH probe. Admitted for acute upper GI bleed. Acute upper GI bleed. - Pt presents with melena and hematemesis following EGD with biopsy and placement of intranasal pH probe. It is rare for an EGD with biopsy or a pH probe to cause this degree of bleeding, but possible. Given her symptoms and degree of anemia, we will proceed with EGD to search for source of bleed. - EGD scheduled for today. - Recommend Protonix 40 mg IV BID Acute blood loss anemia - Hb maintaining in mid-low 7s after 1U PRBCs. Likely secondary to upper GI bleed. - Continue to monitor H&H regularly. - Transfuse as required. Problems: Pain Evaluation: Adequate Pain Control GI Prophylaxis: Proton Pump Inhibitor VTE Prophylaxis Indicated: Contraindicated VTE Mechanical Devices: Intermittant Pneumatic CD Resuscitation Status: CPR: Attempt Resuscitation Attending Statement Patient seen and examined today along with Dr Guajardo. Bleeding appears to have stopped, but patient did drop hb down into the 7 range and has received 1 unit pRBC. Please see EGD note for further details. Troy Guajardo Jul 13, 2016 16:46 Cirilo Childers MD Jul 13, 2016 17:17
--- NOTE | 2016-07-13 18:48 | ENDO ---
[address] [address] ENDOSCOPY PROCEDURE PATIENT: JOJO SCHULTE : 1945 MR#: [id number] ADMIT: 07/12/2016 JOB ID: [id number] DESCRIPTION OF PROCEDURE: 07/13/2016 PROCEDURE: Esophagogastroduodenoscopy with epinephrine injection and hot forceps coagulation application. INDICATION: A 71-year-old female who recently had an upper endoscopy two days ago with biopsies at that GEJ. She additionally had manometry and pHmetry performed. Yesterday morning she started to experience melena and felt quite poorly. Subsequently she developed some hematemesis in the afternoon and came in for further evaluation. Hemoglobin dropped down into the 7 range. She has not had any further vomiting or bowel movements today, but we have decided to pursue repeat upper endoscopy. EQUIPMENT: Standard upper endoscope. SEDATION: Monitored anesthesia as provided by Dr. Otf Hutchinson. COMPLICATIONS: None identified. PROCEDURE INFORMATION: After the risks and benefits were explained, written and verbal informed consent was obtained. The patient was brought into the endoscopy suite and placed into the left lateral decubitus position. Sedation was achieved as above. The scope was introduced into the mouth through the bite block and advanced to the 2nd portion of the duodenum. The scope was slowly withdrawn while carefully examining the mucosa for any defects or lesions. Retroflexed views were accomplished in the stomach, the stomach was decompressed, and the scope removed from the patient, who tolerated the procedure well. FINDINGS: 1. Duodenum: No new or old blood. No source of blood loss. 2. Stomach: No ulcers. No mass lesions. No outlet obstruction. Retroflexed views of the LES were rather unremarkable. No new or old blood. 3. Esophagus: Small sliding hiatal hernia. GEJ was at about 35 cm from the incisors. The diaphragmatic pinchcock was at about 36.5 cm from the incisors. In the 2 o'clock position there was evidence of a significant nipple sign consistent with a nonbleeding and clotted off visible vessel within a biopsy site. We injected around this region with approximately 1.25 mL of 1:10,000 epinephrine. We then applied utilized a set of hot forceps, grasping the nonvisible vessel between the forceps, and applying cautery for obliteration. We released the forceps and did not pull this away from the wall of the esophagus. There was no bleeding from these maneuvers. The scope was then withdrawn. The patient tolerated the procedure well. ENDOSCOPIC DIAGNOSES: 1. Hemorrhagic gastroesophageal junction biopsy site status post epinephrine injection and coagulation. 2. Hiatal hernia. RECOMMENDATIONS: 1. Continue PPI drip until the morning. 2. Continue the oral PPI starting tomorrow twice daily. 3. If the patient remains clinically stable tomorrow, she should be allowed discharge home. I would recommend she have twice a day PPI for the next couple of weeks. PAUL
--- NOTE | 2016-07-13 19:49 | NUR ---
Left unit Pt left PCC room 2023 at ~1400 for endo procedure, Pt tolerated well. Pt A&Ox3, denied pain, and VSS on RA both prior to leaving and after returning from procedure. Pt tolerated clear liquids after procedure, no BM/emesis this shift.
--- NOTE | 2016-07-13 20:27 | NUR ---
[facility] signed
[2016-07-14] VITALS (12 sets, daily range): BP systolic 98–121; BP diastolic 58–79; PULSE 75–90; RESP 16–20; O2SAT 96–98
[2016-07-14] MEDS: 0.9% Sodium Chloride 1,000 ML IV SCH ×2 (01:47→16:33)
[2016-07-14] MEDS: Pantoprazole Inj 80 MG in 0.9% Sodium Chloride 80 ML IV SCH (01:55)
[2016-07-14 03:56] LABS: Mean Corpuscular Hemoglobin 30.5 pg (27.0-35.0); Mean Corpuscular Volume 90.9 fL (81-100)
[2016-07-14] MEDS: 0.9% Sodium Chloride 250 ML IV SCH (04:43)
--- NOTE | 2016-07-14 06:52 | NUR ---
P: hgb 6.7 I: one unit PRBCs E: Blood transfusing currently. Tolerating well. Protonix drips. A/O. Denies pain, dyspnea. Abdominal squeezy w/ some mild nausea after up to BSC. Zofran effective. Riley hot and cold start of shift. No further hot and cold sensation this AM. "I am feeling less weak". Tele SR. VSS. RA sats mid to high 90s. Voiding well via BSC w/ SBA. No stools.
[2016-07-14] MEDS: Insulin LISPRO 300 Unit/3 mL Inj SUBQ SCH ×4 (07:41→22:00)
[2016-07-14] MEDS: Pantoprazole 40 mg ER24 Tablet PO SCH ×2 (07:41→16:39)
--- NOTE | 2016-07-14 12:15 | PROG NOTE ---
[address] [address] PROGRESS NOTE PATIENT: JOJO SCHULTE : 1945 MR#: [id number] ADMIT: 07/12/2016 JOB ID: [id number] DATE: 07/14/2016 SUBJECTIVE: No further melenic stools overnight. No nausea or vomiting. The patient is on a mechanical dysphagia soft diet. She was transitioned over to oral PPI this morning. Hemoglobin was recorded as 6.7 early this morning and she received another unit of packed RBCs (she has now had two total units of PRBCs). OBJECTIVE: Vital signs are stable. Blood pressure 114/76, pulse 79, breathing 16, temperature 36.7. The patient is alert, oriented, appropriate, cooperative, conversational, in no distress. LABORATORY: Post transfusion hematocrit is up to 24.6. Platelets were down a little bit this morning at 117. BUN this morning has fallen to 16. ASSESSMENT AND RECOMMENDATIONS: This is a 71-year-old female with acute large upper GI bleed secondary to biopsy at the level of the GE junction. I explained to the patient that this level of bleeding would be exceedingly rare. The biopsy location was treated with dilute epinephrine injection and electrocautery. At this point it does not appear as though she is having any ongoing bleeding. I suggested that the patient remain on b.i.d. PPI when she goes home for the next couple of weeks. I would recommend the patient be considered for one more unit of packed RBC transfusion and then, beyond that all of the above, if the patient remains clinically stable she should be offered discharge home from my perspective. She will need to follow up on the pH and manometry results, along with the histology that was acquired down at [facility].
--- NOTE | 2016-07-14 12:48 | NUR ---
Social Work Note - Initial Assessment Jeri Goodrich is a 71 yr old admitted for Upper GI bleed. EMR reviewed: Pt has Medicare and [employer] blue [employer] Supp. Her PCP is Kalee Van at [facility]. Readmit score is 0. See attached CM initial assessment. NURSE FIRST AID met with pt - introduced D/c planning and explained SW role. Pt lives at home with her in [place]. Independent at baseline, No DME. Pt anticipates going home with no identified needs. Pt states she has DPOA paperwork but is not sure about advanced directives. NURSE [employer] AID provided paperwork - pt will fill out at home and return to hospital. will provide transportation. Plan: home with in POV - no needs identified. CELSO Johns Addendum: 07/14/16 at 1251 by SANDRA GOSS SS Amended: Links added.
--- NOTE | 2016-07-14 18:03 | PCM.PNMED ---
Subjective Date of Service Jul 14, 2016 Subjective She is alert no difficulties. She denies any nausea. No bowel movement. No abdominal pain. No chest pain or dyspnea. She does feel somewhat weak. Exam Vital Signs Vital Sign - Last Date Time Temp Pulse Resp B/P Pulse Ox O2 Delivery O2 Flow Rate FiO2 07/14/16 15:50 36.6 75 18 118/72 98 Room Air 07/12/16 19:19 2.00 Intake and Output 07/13/16 07/13/16 07/14/16 Cumulative From/Thru 15:00 23:00 07:00 07/12/16 17:04 - 07/14/16 06:56 Intake Total 424 ml 1726 ml 2076 ml 7470 ml Output Total 1250 ml 2000 ml 3950 ml Balance 424 ml 476 ml 76 ml 3520 ml Intake Oral 480 ml 1200 ml 2280 ml IV Total 124 ml 1246 ml 876 ml 4890 ml Packed Cells 300 ml 300 ml Output Urine Total 1250 ml 2000 ml 3950 ml Emesis 0 ml 0 ml # Voids 2 2 # Bowel Movements 0 0 Exam Alert oriented 3, fluent speech Anicteric sclera Symmetric pupils Lungs are clear and normal effort. Heart is regular without murmur Abdomen is soft nondistended. Extremities are free of edema. IVs and Medications Medications Reviewed: Medications were reviewed in detail Lab and Diagnostics Result Diagram: 07/14/16 1619 07/14/16 0335 Assessment & Plan 71-year-old female with recent upper endoscopy with biopsy with new hematemesis. 1. upper GI bleed with acute anemia; present admission; improved. She had endoscopy yesterday revealing a bleed from her previous biopsy site. This was cauterized. Bleeding appeared to be controlled. She is on Protonix IV twice a day. There is no clinical evidence of ongoing bleeding. 2. Acute blood loss anemia. The patient will have serial hematocrits and transfuse for hematocrit less than 21. She received a second unit of blood and has had a hematocrit of about 24 this morning and afternoon. We will watch her overnight with a morning hematocrit. If this remains stable we will likely allow her to return home tomorrow morning. 3. Hyperglycemia; present on admission; ongoing -No known history of diabetes; patient presents with glucose 152 -We will check an A1c -Start patient on low-dose insulin protocol 4. Chronic Hypertension; present on admission; stable -Patient is on the Lisinopril and hydrochlorothiazide at home -Patient presents with blood pressure 116/82 -We will hold home medications until proven hemodynamically stable 5. Hypercholesterolemia; present on admission; stable -Patient was previously on statin but had unwanted side effects of decreased mentation medication was stopped -We will not start medication Disposition: patient is being admitted to inpatient PCC with acute GI bleed with expected Navas greater than 2 minutes due to severity of presenting symptoms, duration treatment, and risks of adverse events Pain Evaluation: Adequate Pain Control GI Prophylaxis: Proton Pump Inhibitor VTE Mechanical Devices: Intermittant Pneumatic CD Resuscitation Status: CPR: Attempt Resuscitation Time spent 25 minutes Himanshu Moctezuma MD Jul 14, 2016 18:03
--- NOTE | 2016-07-14 19:18 | NUR ---
Hematocrit Pt's hematocrit decreased from 24.6 to 23.8 this shift, MD aware. Pt reports that she feels less drowsy/weak today than yesterday's shift. Pt no overt bleeding and no BM today.
[2016-07-15] MEDS: 0.9% Sodium Chloride 250 ML IV SCH (04:20)
--- NOTE | 2016-07-15 04:24 | NUR ---
Hematocrit/ Rest Patient's Hct up to 24.5 on morning lab draw. No signs or symptoms of continued bleeding overnight. Patient sleeping for most of the shift. Up several times to bedside commode with standby assist. Continue to monitor.
[2016-07-15 04:33] VITALS: BP 126/78; PULSE 67; RESP 16; O2SAT 99
[2016-07-15] MEDS: 0.9% Sodium Chloride 1,000 ML IV SCH (04:39)
[2016-07-15 06:04] VITALS: PULSE 67
[2016-07-15 07:13] VITALS: BP 125/76; PULSE 61; RESP 16; O2SAT 99
[2016-07-15] MEDS: Insulin LISPRO 300 Unit/3 mL Inj SUBQ SCH (07:21)
[2016-07-15] MEDS: Pantoprazole 40 mg ER24 Tablet PO SCH (07:22)
[2016-07-15 09:27] VITALS: PULSE 78
--- NOTE | 2016-07-15 10:41 | PCM.DIMED ---
Discharge Instructions Date of Service Jul 15, 2016 Dates of Hospitalization Jul 12, 2016 at 18:53 Discharge Diagnosis Discharge Diagnosis 1. Upper GI bleed from biopsy site 2. Acute blood loss anemia 3. GERD 4. Hypertension. 5. Hyperlipidemia. Diet Other (a chemical soft, low-salt.) Activity Limited until seen by PCP Patient Instructions Sofía Chavez as scheduled on Saturday. Himanshu Moctezuma MD Jul 15, 2016 10:41
[2016-07-15] MEDS ORDERED: PANT40TA2 PO (10:42)
--- NOTE | 2016-07-15 12:19 | NUR ---
[facility] signed
--- NOTE | 2016-07-15 12:27 | NUR ---
Discharge Pt just discharged to home with family. Pt given discharge educational materials on GI bleeds and new prescription. Pt's IV access D/C'd and intact x2. Pt instructed to f/u with PCP. Pt verbalized understanding of all discharge instructions. All belongings accompanied Pt at time of discharge.
--- NOTE | 2016-07-15 13:39 | PCM.DC.MED ---
Discharge Summary Date of Service Jul 15, 2016 Dates of Hospitalization Date of Hospital Admission Jul 12, 2016 at 18:53 Date of Discharge: Jul 15, 2016 Providers: Admitting Physician: Jeanne Jeter DO Primary Care Physician: Other,Physician Attending Physician: Jeanne Jeter DO Diagnosis at Time of Discharge Diagnosis at Time of Discharge 1. Upper GI bleed from biopsy site 2. Acute blood loss anemia 3. GERD 4. Hypertension. 5. Hyperlipidemia. Consultations Gastroenterology, Dr. Childers Procedures Invasive Procedures Upper endoscopy, this revealed a bleeding site from previous biopsy at the gastroesophageal junction. This area was treated with epinephrine injection. It was also cauterized. Brief History Patient is a 71 year old female with history of hypertension and hyperlipidemia who presents to the ED due to ongoing melena and new substantial hematemesis. Patient underwent EGD at [facility] on 07/11/2016 with biopsy of the gastroesophageal junction as this was noted to be irregular. Following the biopsy the patient had a pH impedance monitoring probe inserted. The next morning the patient awoke with a cold sweat, nausea, and melena with associated dizziness, lightheadedness, and general malaise. She returned to [facility] to have the probe removed at which time it was noted that the probe had streaks of blood on it, and was told that this is not unusual. She returned home and that afternoon she had a large emesis described as coffee-ground with copious amounts of blood. At time of consult, she reports mild nausea and weakness, but denies vomiting/hematemesis, diarrhea or melena, fevers, chills, chest pain or abdominal pain. Patient is currently not on blood thinners, NSAIDs, or Tylenol. She has never suffered from a GI bleed before. However her father did have an LA second to severe GI bleed. She reports 2 grandmothers diagnosed with colon cancer, one in her 70s, one at 89. Her last colonoscopy was last year with no polyps, and was told to follow up in 5 years because of her risk factors and previous history of polyps. No family history of Crohn's, UC, or Celiac disease. On admission, Hb was 10.9, which dropped to 7.9 then to 7. She received 1 U PRBCs, and is currently at Hb 7.2. Vitals stable. Hospital Course 71-year-old female with recent upper endoscopy with biopsy with new hematemesis. 1. upper GI bleed with acute anemia; present admission; improved. She had endoscopy yesterday revealing a bleed from her previous biopsy site. This was cauterized. Bleeding appeared to be controlled. She is on Protonix IV twice a day. There is no clinical evidence of ongoing bleeding. 2. Acute blood loss anemia. The patient will have serial hematocrits and transfuse for hematocrit less than 21. She received a second unit of blood and has had a hematocrit of about 24 this morning and afternoon. We will watch her overnight with a morning hematocrit. If this remains stable we will likely allow her to return home tomorrow morning. 3. Hyperglycemia; present on admission; ongoing -No known history of diabetes; patient presents with glucose 152 -We will check an A1c -Start patient on low-dose insulin protocol 4. Chronic Hypertension; present on admission; stable -Patient is on the Lisinopril and hydrochlorothiazide at home -Patient presents with blood pressure 116/82 -We will hold home medications until proven hemodynamically stable 5. Hypercholesterolemia; present on admission; stable -Patient was previously on statin but had unwanted side effects of decreased mentation medication was stopped -We will not start medication Disposition: patient is being admitted to inpatient PCC with acute GI bleed with expected Navas greater than 2 minutes due to severity of presenting symptoms, duration treatment, and risks of adverse events Hospital course. The patient presented with evidence of acute upper bleed with melena. The patient received 2 units of packed red blood cells during the course of her hospitalization and acute blood loss anemia. Endoscopy was performed the day after arrival revealed bleeding from the biopsy site that had been performed at [facility]. This area was treated with cautery as well as epinephrine injection. Postprocedure she did well and had no evidence of clinical recurrent bleeding. She is started on a soft mechanical diet. Limited discharge her hematocrit was stable at about 25 and she felt well enough for discharge home. Recommendations from GI for Protonix twice a day for the next 2 weeks and then consideration once a day. She does have a follow-up 3 days after discharge at [facility] on Saturday with gastroenterology. Exam Vital Signs (Last) Date Time Temp Pulse Resp B/P Pulse Ox O2 Delivery O2 Flow Rate FiO2 07/15/16 09:27 78 07/15/16 07:13 36.8 16 125/76 99 Room Air 07/12/16 19:19 2.00 Exam The regards to 3, no distress. Neck supple. Lungs are clear,. Heart is regular without murmur or gallop. Abdomen soft nondistended Extremities free of edema. Test 07/12/16 17:17 07/12/16 17:31 07/13/16 00:09 07/13/16 00:15 Hold Purple Top Tube Received (Received) Hold Blue Top Tube Received (Received) Hold Red Top Tube Received (Received) Hold [place] Top Tube Received (Received) Prothrombin Time 10.9sec (8.1-12.5) Prothromb Time International Ratio 1.02ratio Urine Color Straw (YELLOW) Urine Appearance Clear (CLEAR,HAZY) Urine pH 5.5 (5.0-8.0) Urine Specific [place] 1.015 (1.003-1.035) Urine Protein Negativemg/dL (NEG,TRACE) Urine Glucose (UA) Negativemg/dL (NEGATIVE) Urine Ketones Negativemg/dL (NEGATIVE) Urine Occult Blood Negative (NEGATIVE) Urine Nitrite Negative (NEGATIVE) Urine Bilirubin Negative (NEGATIVE) Urine Urobilinogen Normalmg/dL (NORMAL) Urine Leukocyte Esterase Negative (NEGATIVE) Urine RBC 0-2/hpf (0-2) Urine WBC 0-5/hpf (0-5) Urine Epithelial Cells Moderate/hpf (NONE-MOD) Urine Crystals None seen (NONE SEEN) Urine Bacteria Moderate/hpf (NONE-FEW) Urine Hyaline Casts None/lpf (NONE) Urine Granular Casts None seen (NONE SEEN) Urine Waxy Casts None seen (NONE SEEN) Urine Red Blood Cell Casts None seen (NONE SEEN) Urine White Blood Cell Casts None seen (NONE SEEN) Urine Mucus None seen (None Seen) Urine Trichomonas None seen (NONE SEEN) Urine Yeast None (NONE SEEN) Urine Culture Reflexed Indicated Hemoglobin A1c 6.2% (4.8-5.6) Test 07/13/16 03:20 07/14/16 03:35 07/15/16 03:20 Neutrophils (%) (Auto) 53.9% (40-74) Lymphocytes (%) (Auto) 38.5% (14-46) Monocytes (%) (Auto) 5.9% (4-12) Eosinophils (%) (Auto) 0.9% (0-5) Basophils (%) (Auto) 0.6% (0-3) Total Bilirubin 0.3mg/dL (0.0-1.2) Aspartate Amino Transf (AST/SGOT) 12U/L (0-50) Alanine Aminotransferase (ALT/SGPT) 15U/L (0-32) Alkaline Phosphatase 37U/L (25-165) Total Protein 4.1g/dL (6.4-8.4) Albumin 2.8g/dL (3.4-5.0) White Blood Count 5.2th/mm3 (3.8-10.1) Red Blood Count 2.20mil/mm3 (3.90-5.20) Hemoglobin 6.7g/dL (12.0-15.6) Mean Corpuscular Volume 90.9fL (81-100) Mean Corpuscular Hemoglobin 30.5pg (27.0-35.0) Mean Corpuscular Hemoglobin Concent 33.5% (32.0-37.0) Red Cell Distribution Width 12.9% (12.3-15.4) Platelet Count 117bil/L (150-400) Sodium Level 140mEq/L (134-144) Potassium Level 3.7mEq/L (3.5-5.2) Chloride Level 108mEq/L (97-108) Carbon Dioxide Level 24mmol/L (18-29) Blood Urea Nitrogen 16mg/dL (8-27) Creatinine 0.56mg/dL (0.57-1.00) Estimat Glomerular Filtration Rate 154mL/min (>59) Glucose Level 100mg/dL (60-99) Calcium Level 7.6mg/dL (8.5-10.1) Hematocrit 24.5% (35.0-46.0) Discharge Medications Discharge Medications Aspirin Chew (Aspirin Chew) 81 Mg Chew 81 MG PO HS (Reported) Estradiol (Estring) 1 Each Vag.ring 1 EACH VG change every 3 month (Reported) Hydrochlorothiazide (Hydrochlorothiazide) 25 Mg Tablet 25 MG PO MORNING ( Reported) Lisinopril (Lisinopril) 20 Mg Tablet 20 MG PO MORNING (Reported) Pantoprazole DR (Protonix) 40 Mg Tablet 40 MG PO BID Prescribed by: BJ MAYBERRY MD Triamcinolone Acetonide (Nasacort) 10.8 Ml [place] 10.8 ML NS HS (Reported) Followup Plan Disposition: Home Follow-up plan Sofía Chavez is scheduled this coming Saturday with gastroenterology Discharge Diet: Other (a chemical soft, low-salt.) Discharge Activity: Limited until seen by PCP Patient Instructions Sofía Chavez as scheduled on Saturday. Time spent 40 minutes Bj Mayberry MD Jul 15, 2016 13:39
== END 2016-07-15 12:00 | disposition home or self-care (01) | DRG 920 ==
LOC: SED 16:48 → OBSVTOIN 18:53 → PCC 18:53
PROVIDERS: ADMIT Internal Medicine; ATTEND Internal Medicine
PROC: 3E0G8GC Introduction of Other Therapeutic Substance into Upper GI, Via Natural or Artificial Opening Endoscopic (ICD-10-PCS; 2016-07-13)
PROC: 30233N1 Transfusion of Nonautologous Red Blood Cells into Peripheral Vein, Percutaneous Approach (ICD-10-PCS; 2016-07-13)
PROC: 0W3P8ZZ Control Bleeding in Gastrointestinal Tract, Via Natural or Artificial Opening Endoscopic (ICD-10-PCS; principal; 2016-07-13 14:00)
DX: K91.840 Postprocedural hemorrhage of a digestive system organ or structure following a digestive system procedure (principal); D62 Acute posthemorrhagic anemia; K21.9 Gastro-esophageal reflux disease without esophagitis; I10 Essential (primary) hypertension; E78.5 Hyperlipidemia, unspecified; R73.9 Hyperglycemia, unspecified; Y84.8 Other medical procedures as the cause of abnormal reaction of the patient, or of later complication, without mention of misadventure at the time of the procedure; E78.00 Pure hypercholesterolemia, unspecified